=== PATIENT | male | born 1990 | race Caucasian/White ===

== ENCOUNTER 2020-03-22 09:48 | Day surgery (SDC) | payer OTHER ==
[~2020-03-22] VITALS: Ht 170.2 cm; Wt 83.9 kg
[~2020-03-22 09:48] MED LIST: HYDR-643 PO; NS 1,000 ML IV ONE
--- OUTSIDE RECORDS SUMMARY | 2020-03-22 09:54 | CCD ---
Author [facility] Organization [facility] Address Unknown Phone Unavailable Care Team Providers Care Event Decorator Name Role Phone Milly Canas MD Unavailable Unavailable Milly Canas MD Unavailable Unavailable Milly Canas MD Unavailable Unavailable Milly Canas MD Unavailable Unavailable Milly Canas MD Unavailable Unavailable Milly Canas MD Unavailable Unavailable Milly Canas MD Unavailable Unavailable Milly Canas MD Unavailable Unavailable Milly Canas MD Unavailable Unavailable Milly Canas MD Unavailable Unavailable Milly Canas MD Unavailable Unavailable Milly Canas MD Unavailable Unavailable Milly Canas MD Unavailable Unavailable Milly Canas MD Unavailable Unavailable Milly Canas MD Unavailable Unavailable Milly Canas MD Unavailable Unavailable Milly Canas MD Unavailable Unavailable Milly Canas MD Unavailable Unavailable Milly Canas MD Unavailable Unavailable Milly Canas MD Unavailable Unavailable Milly Canas MD Unavailable Unavailable Milly Canas MD Unavailable Unavailable Milly Canas MD Unavailable Unavailable Milly Canas MD Unavailable Unavailable Floresita, S Alfredo MD Unavailable Unavailable Floresita, S Alfredo MD Unavailable Unavailable Floresita, S Alfredo MD Unavailable Unavailable Floresita, S Alfredo MD Unavailable Unavailable Floresita, S Alfredo MD Unavailable Unavailable Floresita, S Alfredo MD Unavailable Unavailable Floresita, S Alfredo MD Unavailable Unavailable Floresita, S Alfredo MD Unavailable Unavailable Floresita, S Alfredo MD Unavailable Unavailable Floresita, S Alfredo MD Unavailable Unavailable Floresita, S Alfredo MD Unavailable Unavailable Floresita, S Alfredo MD Unavailable Unavailable Floresita, S Alfredo MD Unavailable Unavailable Floresita, S Alfredo MD Unavailable Unavailable Floresita, S Alfredo MD Unavailable Unavailable Floresita, S Alfredo MD Unavailable Unavailable Floresita, S Alfredo MD Unavailable Unavailable Floresita, S Alfredo MD Unavailable Unavailable Floresita, S Alfredo MD Unavailable Unavailable Floresita, S Alfredo MD Unavailable Unavailable Floresita, S Alfredo MD Unavailable Unavailable Floresita, S Alfredo MD Unavailable Unavailable Floresita, S Alfredo MD Unavailable Unavailable Floresita, S Alfredo MD Unavailable Unavailable Floresita, S Alfredo MD Unavailable Unavailable Viviana PAC, Jake Unavailable Unavailable Jupiter PAC, Jake Unavailable Unavailable Jupiter PAC, Jake Unavailable Unavailable Viviana PAC, Jake Unavailable Unavailable Jupiter PAC, Jake Unavailable Unavailable Jupiter PAC, Jake Unavailable Unavailable Jupiter PAC, Jake Unavailable Unavailable Jupiter PAC, Jake Unavailable Unavailable LANG JOYCE NPP Unavailable Unavailable Nain Wagner MD Unavailable Unavailable Nain Wagner MD Unavailable Unavailable Nain Wagner MD Unavailable Unavailable Nain Wagner MD Unavailable Unavailable Nain Wagner MD Unavailable Unavailable Nain Wagner MD Unavailable Unavailable Nain Wagner MD Unavailable Unavailable Nain Wagner MD Unavailable Unavailable Nain Wagner MD Unavailable Unavailable Nain Wagner MD Unavailable Unavailable Nain Wagner MD Unavailable Unavailable Nain Wagner MD Unavailable Unavailable Nain Wagner MD Unavailable Unavailable TURRIN, JUAN R Unavailable Unavailable TURRIN, JUAN R Unavailable Unavailable TURRIN, JUAN R Unavailable Unavailable TURRIN, JUAN R Unavailable Unavailable Re-disclosure Warning The records that you are about to access may contain information from federally-assisted alcohol or drug abuse programs. If such information is present, then the following federally mandated warning applies: This information has been disclosed to you from records protected by federal confidentiality rules (42 CFR part 2). The federal rules prohibit you from making any further disclosure of this information unless further disclosure is expressly permitted by the written consent of the person to whom it pertains or as otherwise permitted by 42 CFR part 2. A general authorization for the release of medical or other information is NOT sufficient for this purpose. The Federal rules restrict any use of the information to criminally investigate or prosecute any alcohol or drug abuse patient.The records that you are about to access may contain highly sensitive health information, the redisclosure of which is protected by Article 27-F of the [place] Public Health law. If you continue you may have access to information: Regarding HIV / AIDS; Provided by facilities licensed or operated by the [facility] Office of Mental Health; or Provided by the [facility] Office for People With Developmental Disabilities. If such information is present, then the following [facility] mandated warning applies: This information has been disclosed to you from confidential records which are protected by state law. State law prohibits you from making any further disclosure of this information without the specific written consent of the person to whom it pertains, or as otherwise permitted by law. Any unauthorized further disclosure in violation of state law may result in a fine or fdc sentence or both. A general authorization for the release of medical or other information is NOT sufficient authorization for further disc losure. Allergies and Adverse Reactions Type Description Substance Reaction Status Data Source(s ) No Known Allergies No Known Allergies [facility] Encounters Encounter Providers Location Date Indications Data Source(s ) Preadmit Attender: JOYCE BARRY 02/01/2020 08 :00:00 PM EST INSOMNIA,SNORING,EDS,RESTLESSNESS [facility] INSOMNIA,SNORING,EDS,RESTLESSNESS Outpatient Attender: Alfredo Canas MD Main Office 01/20/2020 12:45:00 PM EST [facility] ([facility]) Outpatient Attender: Jake COTE 12/19 07:15:00 AM EST - 01/07/2020 08:15:00 AM EST [facility] Patient discharged. Emergency Attender: JUAN R MAGUIRE 2019 04:10:00 PM EST - 12/27/2019 06:55:00 PM EST [facility] Patient discharged. Emergency Attender: Catie Wagner MDAdmitter: Faith Wagner MD OP-EMERGENCY DEPARTMENT 02/20/2019 08:11:00 AM EST - 02/20/2019 09:09:00 AM [facility] Patient discharged. Medications Medication Brand Name Start Date Product Form Dose Route Admi nistrative Instructions Pharmacy Instructions Status Indications Reaction Description Data Source(s) Suprep Bowel Prep Kit Suprep Bowel Prep Kit 01/20/2020 12:00:00 AM EST active [facility] ([facility]) Insurance Providers Payer name Policy type / Coverage type Policy ID Covered alliance party ID Covered alliance party's relationship to brito Policy Brito Plan Information [employer] [id number] SP [id number] ACTIVE DUTY [id number] SP [id number] [employer] - O/P [id number] 18 [id number] N REGIONAL CLAIMS KRISTIE-O/P [id number] 18 [id number] ACTIVE DUTY [id number] SELF [id number] ASSIGNED MEDICARE (81) [id number] [employer] [id number] P [id number] MEDICARE A [id number] P [id number] 1A [employer] [place] [id number] SELF [id number] MEDICARE IP / OP [id number] SELF [id number] [facility] INS PLAN [id number] SELF [id number] Problems, Conditions, and Diagnoses Code Display Name Description Problem Type Effective Dates Data Source(s) 05061826 Diarrhea Diarrhea Problem 01/20/2020 12:00:00 AM ES T [facility] ([facility]) [id number] Strain of muscle, fascia and tendon of the posterior muscle group at thigh level, left thigh, initial encounter Strain of muscle, fascia and tendon of the posterior muscle group at thigh level, left thigh, initial encounter Diagnosis 01/07/2020 07:15:00 AM [facility] [id number] Pain in right hip Pain in right hip Diagnosis 01/07/2020 07:15:00 AM [facility] [id number] Other specified places as the place of o ccurrence of the external cause Other specified places as the place of occurrence of the external cause Diagnosis 12/27/2019 04:10:00 PM [facility] [id number] Overexertion from strenuous movement or load, initial encounter Overexertion from strenuous movement or load, initial encounter Diagnosis 12/27/2019 04:10:00 PM [facility] [id number] Other specified enthesopathies of right lower limb, excluding foot Other specified enthesopathies of right lower limb, excluding foot Diagnosis 12/27/2019 04:10:00 PM [facility] [id number] Unspecified injury of right hip, initial encounter Unspecified injury of right hip, initial encounter Diagnosis 12/27/2019 04:10:00 PM [facility] Z48.02 Encounter for removal of sutures ENCOUNTER FOR R EMOVAL OF SUTURES Diagnosis 02/25/2019 07:40:00 PM [facility] Results ID Date Data Source [id number] 02/23/2020 11:33:00 AM [facility] Name Value Range Interpretation Code Description Data Rufina rce(s) Supporting Document(s) SARS coronavirus 2 RNA Not Detected [facility] This lab was ordered by [facility] Laboratory and reported by [facility]. ID Date Data Source [id number] 01/10/2020 11:38:00 AM [facility] [address] [place] [address] PHONE: [phone] FAX: [phone] Name .................. : NAHID Munoz Acct Number.................. : [id number] ROOM. ................. : Number ................... : [id number] Stay type ............. : O/P Discharge Date......... ... : 01/07/20 Admit Date ....... .. : 01/07/20 Admit Phys .................... : VIVIANA STOUT Date of ....... : 1990 Family Phys ................... : UNKNOWN CO Phone .................. : [phone] Age ................................ : 29 Film# .................. .:[id number] Sex ................................. : M Unsigned transcriptions are preliminary reports and do not represent a medical or legal document MRI LOWER EXT ANY JT W/O CONT [id number] COMPLETE:01/07/20 08:49 ELODIA 87587 (REASON FOR PROCESS: PAIN MRI OF THE RIGHT HIP WITHOUT CONTRAST: FINDINGS: Edematous changes are noted in the posterior aspect of the right inferior pubic ramus likely reactive edema following avulsion of the tendons of the semimembranosus and semitendinosus. No other osseous signal abnormality is seen. There is no other suggestion of musculotendinous disruption. Soft tissue mass is not identified. A small joint effusion is seen that is within normal limits. There is no abnormal bursal fluid collection. There is no labral tear. IMPRESSION: Avulsion injury of semimembranosus and semitendinosus tendons from the right inferior pubic ramus. Edematous changes in the right inferior pubic ramus posteriorly noted that is attributed to tendinous disruption. Otherwise, unremarkable examination. Electronically Reviewed and Signed By Arelis Farrell MD , 01/10/20 11:38, KGLolly Transcribe Initials: POLO , Transcribe Date: 01/08/20 01:46, Dictation Date: Copy for: VIVIANA RUCKER via fax Copy for: [address] [place] [address] REC Page 1 of 1 Name Value Range Interpretation Code Description Data Rufina rce(s) Supporting Document(s) ID Date Data Source [id number] 12/28/2019 08:59:00 [place] [address] PHONE: [phone] FAX: [phone] Name .................. : NAHID Munoz Acct Number.................. : [id number] ROOM. ................. : [facility] MR Number ................... : [id number] Stay type ............. : E/R Discharge Date......... ... : 12/27/19 Admit Date ....... .. : 12/27/19 Admit Phys .................... : TING MARCOS Date of ....... : 1990 Family Phys ................... : UNKNOWN CO Phone .................. : [phone] Age ................................ : 29 Film# .................. .:[id number] Sex ................................. : M Unsigned transcriptions are preliminary reports and do not represent a medical or legal document HIP UNILAT W PELV 2 TO 3V RT [id number] COMPLETE:12/27/19 19:20 [facility] [address] Reason(s): Hip Pain RIGHT HIP X-RAY WITH PELVIS: TECHNIQUE: Frontal view of the pelvis, frog leg view of the right hip and frontal view of the right hip were performed. FINDINGS: Acute fracture, subluxation or focal osseous lesion is not seen. Osteoarthritic changes are not identified. IMPRESSION: No acute pathology. If symptoms persist, consider correlation with MRI. Electronically Reviewed and Signed By Arelis Farrell MD , 12/28/19 08:59, KGG Transcribe Initials: POLO , Transcribe Date: 12/27/19 22:42, Dictation Date: Copy for: EMERGENCY DEPT via modem Copy for: 710 MED REC DISCHARGED Page 1 of 1 Name Value Range Interpretation Code Description Data Rufina rce(s) Supporting Document(s) ID Date Data Source [id number] 12/27/2019 04:10:00 PM EST [facility] 1 OrderSheet [facility] Emergency Department [address] [place] [address] Phone #: ext- [phone] 12/27/2019 15:53 Patient: MANFRED WHITFIELD Sex: M : 1990 Age: 29yWEIGHT:79.3 kg (S) HEIGHT:68 inches (S) BMI:26.6ALLERGIES: No Known Drug AllergyCHIEF COMPLAINT: Hip Injury, RtDIAGNOSIS: TendinitisLAB ORDERSOrder Description Priority Entered Acknowledged InitialedDIAGNOSTIC STUDY ORDERSOrder Description Priority Entered Acknowledged InitialedHip Right with STAT 16:32 12/27/2019 16:33 Isaiah Alonso 2-3 Views Juan R Maguire RN(Oxygen?(No)) Juliette; Reason for Study: Hip Pain, Pelvic PainMEDICATION/IV/DRIP/FLUID ORDERSOrder Description Priority Entered Acknowledged InitialedToradol IM 30 mg 16:31 12/27/2019 16:42 Blanca Alonso Riccardo RN M.D.;Morphine IM 4 mg 16:31 12/27/2019 16:43 Blanca Alonso(HIGH ALERT Juan R Maguire RNMEDICATION) Juliette;GENERAL ORDERSOrder Description Priority Entered Acknowledged Initialed[Electronically signed by Blanca Alonso RN (18:57 12/27/2019)][Electronically signed by Juan R Maguire M.D. (19:48 12/27/2019)][Electronically locked by Blanca Alonso RN (18:57 12/27/2019)] Name Value Range Interpretation Code Description Data Rufina rce(s) Supporting Document(s) ID Date Data Source [id number] 12/27/2019 04:10:00 PM [facility] 1 Medication Reconciliation Report [facility] Emergency Department [address] [place] [address] Phone #: ext- [phone] 12/27/2019 15:53 Patient: MANFRED WHITFIELD Sex: M : 1990 Age: 29yWeight: 79.3 kgHeight/Length: 68 in.BMI: 26.6ALLERGIES: No Known Drug AllergyThe patient's Home Medications are listed below:CONTINUE TAKING THE FOLLOWING MEDICATIONS: hydrOXYzine HCl Oral Lunesta OralThe source(s) of the original Home Medication information:patientThe following Medications were given to the patient in the Emergency Department:Toradol [IM] IM 30 mg, administered: 12/27/2019 4:42:00 PMMorphine [IM] IM 4 mg, administered: 12/27/2019 4:43:00 PMThe following Medications were prescribed to the patient:None. Name Value Range Interpretation Code Description Data Rufina rce(s) Supporting Document(s) ID Date Data Source [id number] 12/27/2019 04:10:00 PM [facility] 1 Medication Administration Record [facility] Emergency Department [address] [place] [address] Phone #: ext- [phone] 12/27/2019 15:53 Patient: MANFRED WHITFIELD Sex: M : 1990 Age: 29yWeight: 79.3 kgHeight/Length: 68 inBMI: 26.6ALLERGIES: No Known Drug Allergy Date/Time Medication Administered Medication OrderedGiven TORADOL [IM] (KETOROLAC Toradol IM 30 mg16:42 12/27/2019 TROMETHAMINE)Blanca Alonso, CONG Dose: 30 mg IMGiven MORPHINE [IM] Morphine IM 4 mg (HIGH ALERT16:43 12/27/2019 Dose: 4 mg IM MEDICATION)Blanca Alonso RN Name Value Range Interpretation Code Description Data Rufina rce(s) Supporting Document(s) ID Date Data Source [id number] 12/27/2019 04:10:00 PM EST [facility] 1 General Instructions [facility] Emergency Department [address] [place] [address] Phone #: ext- [phone] 12/27/2019 15:53 Patient: MANFRED WHITFIELD Sex: M : 1990 Age: 29yAcute traumatic tendonitis in the right hip (right hamstring at hip/pelvis area).Rule out Torn Hamstring, right side.INSTRUCTIONSApply ice for 30 minutes four times a day for two days followed by moist heat 30 minutes four times a dayfor five days until released. Don't apply ice directly to skin, don't use while asleep and don't use high settingon heating pad. Use crutches until released. You may walk and bear weight as tolerated. Return towork when released by doctor.(PLEASE FOLLOW UP WITH ORTHOPEDICS ON BASE TOMORROW FOR MRI TO RULE OUT RIGHTHAMSTRING TEAR).Warnings: GENERAL WARNINGS: Return or contact your physician immediately if your conditionworsens or changes unexpectedly, if not improving as expected, or if other problems arise. Specificallyreturn if pain, vomiting, bleeding, breathing difficulty or fever greater than 102 degrees F and not controlledby acetaminophen or ibuprofen worsens.Your Current Medications: Your current home medications have been reviewed.CONTINUE TAKING THE FOLLOWING MEDICATIONS:hydrOXYzine HCl Oral.Lunesta Oral.Follow-up:Return to the emergency department as needed. Follow up with an orthopedic surgeon in two days evenif well. Call for an appointment. Reason for referral: evaluation, treatment and MRI to rule out hamstringtear, injury. Summary of care provided to patient via paper.Understanding of the discharge instructions verbalized by patient. Expected course of injury, dischargeinstructions, activity level, diet, follow- up appointment and risks and benefits of treatment reviewed withpatient and understanding verbalized. Agrees to plan of care. ADDITIONAL INFORMATIONTendonitisA tendon is the thick fibrous cord that joins muscle to bone and allows joints to move. When a tendonbecomes inflamed, it is called tendonitis. This can occur from overuse, injury, or infection. This 2 General Instructions [facility] Emergency Department [address] [place] [address] Phone #: ext- [phone] 12/27/2019 15:53 ------ Patient: MANFRED WHITFIELD Sex: M : 1990 Age: 29yusually involves the shoulders, forearm, wrist, hands and feet. Symptoms include pain, swelling andtenderness to the touch. Moving the joint increases the pain.It takes 4 to 6 weeks or more for tendonitis to heal. It is treated by preventing motion of the tendon,occasionally with a splint or brace, and the use of anti-inflammatory medicine.Home care Some people find relief with ice packs. These can be crushed or cubed ice in a plastic bag or a bag of frozen vegetables wrapped in a thin towel. Other people get better relief with heat. This can include a hot shower, hot bath, or a moist towel warmed in a microwave. Try each and use the method that feels best, for 15 to 20 minutes several times a day. Rest the inflamed joint and protect it from movement. You may use vgtg-quv-kbaokzr ibuprofen or naproxen to treat pain and inflammation, unless another medicine was prescribed. If you can't take these medicines, acetaminophen may help with the pain, but does not treat inflammation. If you have chronic liver or kidney disease or ever had a stomach ulcer or gastrointestinal bleeding, talk with your doctor before using these medicines. As your symptoms improve, begin gradual motion at the involved joint.Follow-up careFollow up with your healthcare provider if you are not improving after 5 to 7 days of treatment.When to seek medical adviceCall your healthcare provider right away if any of these occur: Redness over the painful area Increasing pain or swelling at the joint Fever lasting 24 to 48 hours or chills, or as advised by your healthcare provider [phone] The [employer]. [address] [place] [address]. All rights reserved. This information is not intended as asubstitute for professional medical care. Always follow your healthcare professional's instructions.Crutch WalkingCrutch adjustment 3 General Instructions [facility] Emergency Department [address] [place] [address] Phone #: ext- [phone] 12/27/2019 15:53 Patient: MANFRED WHITFIELD Sex: M : 1990 Age: 29y Make sure the crutches you use are adjusted to fit you. When you stand,there should be room to fit 2 to 3 fingers between the top of the crutch and your armpit. Your elbowshould be slightly bent when holding the hand instructor programmable controllers. When your arms hang down, the crutch handleshould be at the top of your hip.Crutch walkingPlace the crutches forward about 1 foot in front of you. The crutches should be a little farther apartthan your body. Lean your weight forward as you push down on the hand instructor programmable controllers. Make sure yourweight is on your hands and your strong leg, not your armpits. Let your body swing forward, landingon the strong leg. Move the crutches forward again. The crutch and your injured leg should movetogether.Going up steps with no handrails(Up with the good leg) With both crutches (under each armpit) on the same step as your feet, push down on the hand instructor programmable controllers. 4 General Instructions [facility] Emergency Department [address] [place] [address] Phone #: ext- [phone] 12/27/2019 15:53 Patient: MANFRED WHITFIELD Sex: M : 1990 Age: 29y Balancing with very light pressure on the weak leg, let your hands support your weight. Raise your strong leg onto the next higher step. Transfer all your weight to your strong leg (still bent). Move the crutches up to the next step, next to your strong leg. Keep your weight evenly balanced on the two crutches and your strong leg. Straighten your strong knee as you raise your weak leg up to the next step.Going down steps with no handrails(Down with the bad leg) With both crutches (under each armpit) on the same step as your feet, push down on the hand instructor programmable controllers. Keep your weight evenly balanced on the two crutches and your strong leg. Bend your strong knee as you lower your weak leg down to the next step. Let your strong leg support you (still bent) as you move the crutches down next to the weak leg. Transfer your weight to your hands. Balance with very light pressure on your weak leg as you lower your strong leg next to your weak legGoing up steps with handrails(Up with the good leg) Face the stairs, holding the handrail with one hand. Place both crutches under your armpit on the opposite side. Push down on the hand instructor programmable controllers. Balancing with very light pressure on the weak leg, let your hands support your weight. Raise your strong leg onto the next higher step. Transfer all your weight to your strong leg (still bent) as you move the crutches up (while holding on to the handrail) to the next step next to the strong leg. Keep your weight evenly balanced on the handrail, the crutches (still under the same armpit opposite the handrail), and your strong leg. Straighten your strong knee as you raise the weak leg up to the next step.Going down steps with handrails(Down with the bad leg) Face the stairs, holding the handrail with one hand. Place both crutches under your armpit on 5 General Instructions [facility] Emergency Department [address] [place] [address] Phone #: ext- [phone] 12/27/2019 15:53 Patient: MANFRED WHITFIELD Sex: M : 1990 Age: 29y the opposite side. Push down on the hand instructor programmable controllers. Balance your weight evenly on the crutches, handrail, and your strong leg. Then bend your strong knee as you lower the weak leg down to the next step. Let the handrail and your strong leg support you (still bent) as you move the crutches down alongside the weak leg. While holding on to the handrail and crutches (under the same armpit on the other side), transfer your weight to your hands, balancing with very light pressure on the weak leg as you lower your strong leg alongside your weak legTip: If you are worried about falling or you feel unsteady, try sitting when going up or down stairsinsselect medical [facility]. Sit on the bottom step and keep your injured leg out in front of you. Hold your crutches flatagainst the stairs. Then slide up to the next step on your bottom. Use your free hand and good leg forsupport. Face the same way when going down stairs. 1705-3235 [employer]. [address] [place] [address], [place] [address]. All rights reserved. This information is not intended as asubstitute for professional medical care. Always follow your healthcare professional's instructions. You have been given the following additional information: Tendonitis Crutch Walking You may walk and bear weight as tolerated. Return to work when released by doctor.(Electronically signed by Juan R Maguire M.D. 12/27/2019 19:48) Name Value Range Interpretation Code Description Data Rufina rce(s) Supporting Document(s) ID Date Data Source [id number] 12/27/2019 04:10:00 PM EST [facility] 1 Clinical Report - Nurses [facility] Emergency Department [address] [place] [address] Phone #: ext- [phone] 12/27/2019 15:53 Patient: MANFRED WHITFIELD Sex: M : 1990 Age: 29yTRIAGEArrived by private vehicle. Historian: patient. Unaccompanied.Triage time: 16:03 12/27/2019. Acuity: LEVEL 4.Chief Complaint: RIGHT LOWER EXTREMITY PAIN.Alert. No acute distress.No injury occurred. ( Pt reports right hip pain x2 weeks. 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 Sepsis Screen negative. No suspected or confirmed signs ofinfection present. --16:06 12/27/19 Андрей Patel5:58 12/27/19. BP: 144/76. MAP: 98. HR: 78. RR: 16. O2 saturation: 97% on room air. Temp: 99.2 F.Pain level now: 07/27. --16:06 12/27/19 Rodrick Patel.Weight: 79.3 kg stated. Height/Length: 68 inches Per Patient. BMI: 26.6. --15:58 12/27/19 Rodrick Patel.MedicationshydrOXYzine HCl Oral. --16:01 12/27/19 Rodrick Patel Lunesta Oral. --16:01 12/27/19 Rodrick Patel.AllergiesNo Known Drug Allergy. --16:01 12/27/19 Rodrick Patel.PROBLEMS:Anxiety Reaction. --16:02 12/27/19 Rodrick Patel.Medication/allergy information source: the patient. --16:06 12/27/19 Rodrick López.ADDITIONAL SURGERIES:Lasik.Left shoulder sx. --16:02 12/27/19 Rodrick Patel.HistoryPAST MEDICAL HX: Immunizations: up-to-date.SOCIAL HX: Never smoker. Occasional alcohol use. No drug use. He was offered HIV testing butdeclined. Patient education was provided. He was offered hepatitis C testing but declined. Patient 2 Clinical Report - Nurses [facility] Emergency Department [address] [place] [address] Phone #: ext- [phone] 12/27/2019 15:53 Patient: MANFRED WHITFIELD Sex: M : 1990 Age: 29y education was provided. He has not traveled outside the [place] Infectious disease exposure: No infectious disease exposure. The patient was not exposed to Coronavirus. Patient is not a known carrier of tuberculosis, hepatitis, HIV, MRSA or VRE. Patient is not a known carrier of CRE. SELF HARM ASSESSMENT: Self harm assessment was performed. The patient answered "no" to the question(s) "Do you have thoughts of harming or killing yourself?", "Do you have a plan for harming or killing yourself?" and "Have you recently had thoughts about harming or killing others?". ABUSE ASSESSMENT: Abuse assessment. The patient had positive responses to the question(s) "Do you feel safe in your home?". No report of abuse. NUTRITIONAL RISK ASSESSMENT: The nutritional risk assessment revealed no deficiencies. FUNCTIONAL ASSESSMENT: Functional assessment: no impairments noted. LEARNING NEEDS ASSESSMENT: The learning needs assessment revealed no barriers. FALL RISK ASSESSMENT: Fall risk assessment completed. Risk factors identified include severe pain and patient impairment of mobility; pt using own crutches. SKIN INTEGRITY ASSESSMENT: Skin integrity risk assessment completed. No skin integrity risk identified. --16:06 12/27/19 Rodrick Patel.PHYSICAL ASSESSMENTAmbulatory to room.GENERAL / NEURO / PSYCH: Oriented X 4. Alert. Appears in no acute distress.EXTREMITIES: Limited ROM present. Extremity pulses are within normal limits. Neuro-vascular statusintact to the extremity. No lower extremity edema. Right hip: tenderness. Limited ROM secondary topain.SKIN: Skin intact. Skin is warm and dry. --16:43 12/27/19 Blanca Alonso RN.NURSING PROGRESS NOTES16:42 12/27/2019 Toradol (Ketorolac Tromethami ne) IM 30 mg given. Given in the right gluteus karely.Allergies verified and confirmed 5 rights. Information reviewed with patient including reason for taking thismedication. Verbalizes understanding. --16:42 12/27/19 Blanca Alonso RN 16:43 12/27/2019 Morphine IM 4 mg given. Given in the right deltoid. Allergies verified and confirmed 5 rights. Information reviewed with patient including reason for taking this medication and sedative warning. Verbalizes understanding. --16:43 12/27/19 Blanca Alonso, CONG Patient gowned. Reassurance given. Two patient identifiers checked. Bed placed in lowest position. Brakes of bed on. Patient ready for evaluation. --16:43 12/27/19 Blanca Alonso, CONG 3 Clinical Report - Nurses [facility] Emergency Department [address] [place] [address] Phone #: ext- [phone] 12/27/2019 15:53 [id number] Sex[facility] M : 1990 Age: 29y 16:59 12/27/19. BP: 141/76. MAP: 97. HR: 72. RR: 18. O2 saturation: 99%. --16:59 12/27/19 [employer] Tech1 16:55 12/27/19. Patient transported to radiology by stretcher with dairy technologist. --17:14 12/27/19 Blanca Alonso RN 17:05 12/27/19. Patient returned from radiology by stretcher with dairy technologist. --17:14 12/27/19 Blanca Alonso RN ( pt states shot helped alittle while he's lying in bed, but any movement pain shoots up). --17:22 12/27/19 Blanca Alonso RN 18:01 12/27/19. BP: 136/78. MAP: 97. HR: 74. RR: 16. O2 saturation: 99%. Temp: 98.1 F. --18:01 12/27/19 [employer], [employer] Tech1 ( pt walking in halls, feeling better). --18:32 12/27/19 Blanca Alonso RN.DISPOSITION / DISCHARGE 18:46 12/27/19. BP: 125/87. MAP: 99. HR: 79. RR: 16. O2 saturation: 99%. Temp: 98.1 F. Pain level now: 03/29. --18:46 12/27/19 [employer], [employer] Tech1 Departure time: 18:56 12/27/2019. --18:56 12/27/19 Blanca Alonso RN Condition at departure: improved. No learning barriers present. Discharge instructions provided and reviewed with the patient. Reviewed rest and ice instructions. Reviewed referral to an orthopedic surgeon. Work note given. Patient verbalized understanding. Long licona instructions provided in Brazilian. The patient was discharged by the physician. He was discharged home and accompanied by friend. He left ambulatory on crutches and via private vehicle. Driving (friend). --18:57 12/27/19 Blanca Alonso RN.Locked/Released at 12/27/2019 18:57 by Blanca Alonso RN Name Value Range Interpretation Code Description Data Rufina rce(s) Supporting Document(s) ID Date Data Source [id number] 12/27/2019 04:10:00 PM EST [facility] 1 Clinical Report - Physicians/[facility] Emergency Department [address] [place] [address] Phone #: ext- [phone] 12/27/2019 15:53 Patient: MANFRED WHITFIELD Sex: M : 1990 Age: 29y Time Seen: 16:21 12/27/2019; initial patient contact. Arrived- By private vehicle. Historian- patient. Disposition decision: 18:43 12/27/2019.HISTORY OF PRESENT ILLNESS Chief Complaint: RIGHT HIP INJURY. The injury occurred just prior to arrival. ( pt has been having mild rt posterior hip pain x 2 weeks, actually went hiking 2 days ago; was sitting at his desk and moved just right and felt a tear in rt posterior hip; severe pain since). O ccurred at work. The patient complains of severe pain. No blow to the head, neck pain, loss of consciousness or seizure. Not dazed.REVIEW OF SYSTEMSNo numbness, hearing loss, headache, loss of vision or chest pain. No depression, weakness, abdominalpain, nausea or difficulty breathing. No bladder dysfunction, laceration, fever or vomiting. Has notrecently been ill. All other systems reviewed and are negative.PAST HISTORYSee nurses notes. Tetanus immunization status is up-to-date. Problems: Anxiety Reaction. Additional Surgeries: Lasik. Left shoulder sx. Medications: Lunesta Oral. hydrOXYzine HCl Oral. Allergies: No Known Drug Allergy.SOCIAL HISTORYNever smoker. Occasional alcohol use. No drug use.ADDITIONAL NOTESThe nursing notes have been reviewed with agreement regarding the chief complaint, HPI, ROS, PMH andpatient medications and allergies.PHYSICAL EXAM 2 Clinical Report - Physicians/Mid Levels [facility] Emergency Department [address] [place] [address] Phone #: ext- [phone] 12/27/2019 15:53 Patient: MANFRED WHITFIELD Sex: M : 1990 Age: 29y Vital Signs: 12/27/2019 15:58 BP: 144/76. MAP: 98. HR: 78. RR: 16. O2 saturation: 97% on room air. Temp: 99.2 F. Pain level now: 07/27. Have been reviewed. Oxygen saturation normal. Appearance: Alert. Oriented X3. No acute distress. Head: Head non-tender. No swelling of head. Eyes: Pupils equal, round and reactive to light. EOM intact. ENT: No dental injury. Pharynx normal. Neck: Painless ROM. Non-tender. CVS: Heart sounds normal. Pulses normal. Respiratory: Painless inspiration. Breath sounds normal. Chest nontender. Abdomen: No visible injury. Soft and nontender. Bowel sounds normal. No organomegaly. No mass. Femoral pulses equal. Back: No tenderness. ROM normal. Skin: Skin intact. Skin warm and dry. Normal skin color. Normal skin turgor. Extremities: Normal inspection. Pelvis stable. Right hip: severe tenderness located in the posterior aspect of the hip. Limited ROM secondary to pain (diminished abduction, adduction, flexion, extension and external and internal rotation). Neurovascular intact distally. (pain is at site of insertion of hamstring to posterior hip area). No erythema, swelling or ecchymosis. No lower extremity edema. Neuro: Oriented X 3. No motor deficit. No sensory deficit. Reflexes normal.LABS, X-RAYS, AND EKGPelvis X-ray: No fracture. Views: AP. Technique: good. Interpretation time: 16:45 12/27/2019.Rt Hip X-ray: No fracture. Views: 2 view hip series and AP. Technique: good. The X-rays wereinterpreted by the radiologist. Interpretation time: 16:46 12/27/2019.PROGRESS AND PROCEDURESCourse of Care: 18:41 12/27/19. rt hip and pelvis x-rays are negative; pt has probable torn hamstring atpelvis or hip insertion; pt has crutches; [place] and [place]x; ptunderstands and agrees. Patient counseled in person regarding the patient's stable condition, diagnosis, need for follow-up and risks and benefits of procedures. Patient agrees with plan of care. Disposition: Condition: good and stable. Discharge decision based on the following: patient's condition is stable; patient's condition is improved; patient is ambulatory; patient is active; patient drinking fluids; patient eating; patient's pain is controlled; patient's exam is improved; no abnormal test results; improving condition on multiple repeat evaluations; social support is good; transportation is available; follow-up is available; clinical impression is consistent with outpatient treatment.CLINICAL IMPRESSION Acute traumatic tendonitis in the right hip (right hamstring at hip/pelvis area). Rule out Torn Hamstring, right side. 3 Clinical Report - Physicians/Mid Levels [facility] Emergency Department [address] [place] [address] Phone #: ext- [phone] 12/27/2019 15:53 Patient: MANFRED WHITFIELD Sex: M : 1990 Age: 29yINSTRUCTIONS Apply ice for 30 minutes four times a day for two days followed by moist heat 30 minutes four times a day for five days until released. Don't apply ice directly to skin, don't use while asleep and don't use high setting on heating pad. Use crutches until released. You may walk and bear weight as tolerated. Return to work when released by doctor. (PLEASE FOLLOW UP WITH ORTHOPEDICS [place]OM[place] FOR MRI TO RULE OUT RIGHT HAMSTRING TEAR). Long benito: GENERAL WARNINGS: Return or contact your physician immediately if your condition worsens or changes unexpectedly, if not improving as expected, or if other problems arise. Specifically return if pain, vomiting, bleeding, breathing difficulty or fever greater than 102 degrees F and not controlled by acetaminophen or ibuprofen worsens. Your Current Medications: Your current home medications have been reviewed. CONTINUE TAKING THE FOLLOWING MEDICATIONS: hydrOXYzine HCl Oral. Lunesta Oral. Follow-up: Return to the emergency department as needed. Follow up with an orthopedic surgeon in two days even if well. Call for an appointment. Reason for referral: evaluation, treatment and MRI to rule out hamstring tear, injury. Summary of care provided to patient via paper. Understanding of the discharge instructions verbalized by patient. Expected course of injury, discharge instructions, activity level, diet, follow- up appointment and risks and benefits of treatment reviewed with patient and understanding verbalized. Agrees to plan of care.(Electronically signed by Juan R Maguire M.D. 12/27/2019 19:48) Name Value Range Interpretation Code Description Data Rufina rce(s) Supporting Document(s) ID Date Data Source [id number] 12/22/2019 12:00:00 AM EST [facility] Name Value Range Interpretation Code Description Data [facility] rce(s) Supporting Document(s) SARS-CoV2 Rapid Antigen [facility] This lab was ordered by [facility] and reported by [facility]. ID Date Data Source [id number] 02/20/2019 08:11:00 AM EST [facility] PAGE: [address] [place] [address] , [place] [address] [facility] REC NUM: [id number] : 1990 Med Reconciliation Patient: MANFRED WHITFIELD Medication Reconciliation Report [facility]Visit[facility]: [id number] [place] [address] [phone], MRegistration Date/Time: 02/20/2019 08:11 Weight: 79.3 kgHeight/Length: 108 in.BMI: 10.5 ALLERGIES: The patient's Home Medications are listed below: Not obtained.The source(s) of the original Home Medication information: Not obtained.The following Medications were given to the patient in the Emergency Department:None.The following Medications were prescribed to the patient: None. Name Value Range Interpretation Code Description Data Rufina rce(s) Supporting Document(s) ID Date Data Source [id number] 02/20/2019 08:11:00 AM EST [facility] PAGE: [address] [place] [address] MANFRED Munoz [address] [place] [address] [facility] NUM: [id number] : 1990 Physician Discharge Report [facility] [address] [place] [address] Patient: MANFRED WHITFIELD : M : 1990 Age: 28yArrival: 02/20/2019 08:11 Departure: 02/20/2019 09:09 Disposition: Discharge Weight:79.3 kg. Height/Length:108 inches. BMI:10.5 Arrived- By private vehicle. Historian- patient. HISTORY OF PRESENT ILLNESSChief Complaint: SUTURE REMOVAL. Treated in emergency department six days ago. Previous emergency department treatment: laceration repair. No antibiotics given. The patient has no complaints since the procedure was performed. REVIEW OF SYSTEMSNo fever or numbness. All other systems reviewed and are negative. PAST HISTORYSee nurses notes. SOCIAL HISTORYSmoker - current status unknown. ADDITIONAL NOTESThe nursing notes have been reviewed. PHYSICAL EXAMVital Signs: 02/20/2019 08:18 BP: 126/82. MAP: 96. HR: 82. RR: 17. O2 saturation: 100%. Appearance: Alert. O riented X3. No acute distress. Skin: Healing wound. No infection. Single wound present- chin. Neuro: Oriented X 3. No motor deficit. PAGE: [address] [place] [address] , [place] [address] [facility] REC NUM: [id number] : 1990 PROGRESS AND PROCEDURESSuture Removal: The wound is located (chin). Examination of wound reveals normal healing, no tenderness and no infection. Distal neurovascular function and tendon function normal. - 5- sutures removed by me. Topical antibiotic applied. Disposition: Discharged. Condition: stable. CLINICAL IMPRESSIONSuture removal; INSTRUCTIONSFollow-up:Follow up with doctor in [place]. (Electronically signed by CATIE WAGNER MD 02/20/2019 08:42) Name Value Range Interpretation Code Description Data Rufina rce(s) Supporting Document(s) Procedure Vital Signs ID Date Data Source UNK Name Value Range Interpretation Code Description Data Source(s) Body mass index (BMI) [Ratio] 28.7 kg/m2 28.7 k g/m2 [facility] ([facility]) Heart rate 58 /min 58 /min [facility] ([facility]) Diastolic blood pressure 80 mm[Hg] 80 mm[Hg] [facility] ([facility]) Systolic blood pressure 129 mm[Hg] 129 mm[Hg] M MALATHI ([facility]) Body weight 183.00 [lb_av] 183.00 [lb_av] VERNON León ([facility]) Body height 67 [in_i] 67 [in_i] MEDRON ([facility]) 5'7" Body temperature 97.5 [degF] 97.5 [degF] NEAL ([facility]) Body weight 83.009 kg 83.009 kg MEDRON ([facility])
--- OUTSIDE RECORDS SUMMARY | 2020-03-22 09:54 | CCD | Continuity of Care Document ---
Author Author Zeyad CHOE M.D Organization Unknown Address [address] [place] [id number] Phone [phone] Care Team Providers Care Qa Consultant Name Role Phone [facility]ovani Medeiros [facility] [phone] Problems Active Problems Provider Date Diarrhea Alfredo Choe M.D. Onset: 01/20/20 20 Social History Type Date Description Comments Sex Unknown ETOH Use Occasionally Tobacco Use Start: Unknown Patient has never smoked Allergies, Adverse Reactions, Alerts Description No Known Drug Allergies Medications Active Medications SIG Qnty Indications Ordering Provide r Date Suprep Bowel Prep Kit 17.5-3.13-1.6GM/177ML Solution use as directed 354ml Alfredo Choe M.D. 01/20/2020 Hydroxyzine HCL 25mg Tablets Unknown Gabapentin 100mg Capsules Unknown Ibuprofen 200mg Capsules Unknown Immunizations Description No Information Available Vital Signs Date Vital Result Comment 01/20/2020 2:01pm Height 67 inches 5'7" Weight 183.00 lb BP Systolic 129 mmHg BP Diastolic 80 mmHg Heart Rate 58 /min BMI (Body Mass Index) 28.7 kg/m2 Weight 83.009 kg Body Temperature 97.5 F Results Description No Information Available Procedures Description No Information Available Medical Devices Description No Information Available Encounters Type Date Location Provider Dx Diagnosis Office Visit 01/20/2020 1:45p Main Office Alfredo Choe M.D. K 58.0 Irritable bowel syndrome with diarrhea Assessments Date Code Description Provider 01/20/2020 K58.0 Irritable bowel syndrome Alfredo Choe M.D. Plan of Treatment Future Appointment(s):* 02/28/2020 8:30 am - Alfredo Choe M.D. at Main Office 01/20/2020 - Alfredo Choe M.D.* K58.0 Irritable bowel syndrome* Comments: * 29 yo wm who presents for a chronic h/o urgency/diarrhea/irregular bowel habits. Occasional rectal bleeding. No weight loss. Pt has had loose bms from 5374-1258. No c/o abdominal pain. Plan:1. Colonoscopy + ileoscopy + biopsies.2. Informed consent. Functional Status Description No Information Available Mental Status Description No Information Available Referrals Refer to Reason for Referral Status Appt Date Alfredo Choe M.D. Scheduled [address] [place] [phone]
[2020-03-22] MEDS ORDERED: LIDOCAINE 2% 100MG/5ML SDV (FOR ANES.) As Ordered ONE (11:00)
[2020-03-22] MEDS ORDERED: propofoL 200 MG/20 ML VIAL As Ordered ONE ×2 (11:00→11:10)
--- NOTE | 2020-03-22 11:27 | ROOR ---
Patient Name: Zeyad Reese Procedure Date: 03/22/2020 11:00 AM Date of : 1990 Age: 30 Room: [facility] Gender: Male Note Status: Finalized Procedure: Total Colonoscopy to Cecum + ileoscopy + Bx Indications: Clinically significant diarrhea of unexplained origin, Rectal bleeding Providers: Alfredo Canas MD Referring MD: MITZI CARTAGENA MD Requesting Provider: Medicines: Monitored Anesthesia Care Complications: No immediate complications. Procedure: Pre-Anesthesia Assessment: - The heart rate, respiratory rate, oxygen saturations, blood pressure, adequacy of pulmonary ventilation, and response to care were monitored throughout the procedure. The Colonoscope was introduced through the anus and advanced to the terminal ileum, with identification of the appendiceal orifice and IC valve. The colonoscopy was performed without difficulty. The patient tolerated the procedure well. The quality of the bowel preparation was excellent. Findings: The perianal and digital rectal examinations were normal. Non-bleeding internal hemorrhoids were found during retroflexion. The hemorrhoids were small and Grade I (internal hemorrhoids that do not prolapse). No other significant abnormalities were identified in a careful examination of the remainder of the colon. Biopsies for histology were taken with a cold forceps from the ascending colon, transverse colon and descending colon for evaluation of microscopic colitis. The exam was otherwise without abnormality on direct and retroflexion views. The terminal ileum appeared normal. Impression: - Non-bleeding internal hemorrhoids. - The examination was otherwise normal on direct and retroflexion views. - The examined portion of the ileum was normal. - Biopsies were taken with a cold forceps from the ascending colon, transverse colon and descending colon for evaluation of microscopic colitis. - The exam was otherwise normal to the cecum. Recommendation: - Patient has a contact number available for emergencies. The signs and symptoms of potential delayed complications were discussed with the patient. Return to normal activities tomorrow. Written discharge instructions were provided to the patient. - High fiber diet. - Discharge patient to home. - Continue present medications. - Await pathology results. - Telephone GI clinic for pathology results in 1 week. - Repeat colonoscopy at age 48 for screening purposes. - Return to referring physician. - The findings and recommendations were discussed with the patient. Procedure Code(s): --- Professional --- 36500, Colonoscopy, flexible; with biopsy, single or multiple Diagnosis Code(s): --- Professional --- K64.0, First degree hemorrhoids R19.7, Diarrhea, unspecified K62.5, Hemorrhage of anus and rectum CPT copyright 2019 [employer]. All rights reserved. The codes documented in this report are preliminary and upon life skills worker review may be revised to meet current compliance requirements. Alfredo Canas MD Alfredo Canas MD 03/22/2020 11:27:06 AM Electronically signed by Alfredo Canas MD Number of Addenda: 0 Note Initiated On: 03/22/2020 11:00 AM Estimated Blood Loss: Estimated blood loss: none.
[2020-03-22 11:40] VITALS: BP 118/64
== END 2020-03-22 11:53 | disposition home or self-care (01) ==
LOC: M OPP 09:48
PROVIDERS: ATTEND Internal Medicine Gastroenterology
DX: R19.7 Diarrhea, unspecified (principal); K62.5 Hemorrhage of anus and rectum; K58.9 Irritable bowel syndrome, unspecified; D12.6 Benign neoplasm of colon, unspecified; K64.0 First degree hemorrhoids; F41.9 Anxiety disorder, unspecified; Z79.899 Other long term (current) drug therapy

== ENCOUNTER 2020-09-13 10:53 | Emergency (ER) | payer OTHER ==
[~2020-09-13] VITALS: Ht 172.7 cm; Wt 84.6 kg
[~2020-09-13 10:53] MED LIST changes: -NS 1,000 ML IV ONE
[2020-09-13] MEDS ORDERED: MELO15TA28 PO (11:19)
[2020-09-13 12:46] LABS: BASO % 0.5 % (0.0-1.0); EOS # 0.1 10^3/uL (0.0-0.5); EOS % 2.3 % (0.0-3.0); HEMATOCRIT 44.6 % (42.0-52.0); HEMOGLOBIN 14.8 g/dl (13.5-17.5); LYMPH # 1.5 10^3/uL (1.5-5.0); LYMPH % 24.9 % (24.0-44.0); MEAN CORPUSCULAR HEMOGLOBIN 30.5 pg (27.0-33.0); MEAN CORPUSCULAR HGB CONC 33.2 g/dl (32.0-36.5); MEAN CORPUSCULAR VOLUME 91.8 fl (80.0-96.0); MONO # 0.4 10^3/uL (0.0-0.8); MONO % 6.6 % (2.0-8.0); NEUTROPHILS # 4.1 10^3/uL (1.5-8.5); NEUTROPHILS % 65.5 % (36.0-66.0); PLATELET COUNT, AUTOMATED 172 10^3/uL (150-450); RED BLOOD COUNT 4.86 10^6/uL (4.30-6.10); WHITE BLOOD COUNT 6.2 10^3/uL (4.0-10.0)
[2020-09-13 13:13] LABS: ALBUMIN 4.2 GM/DL (3.2-5.2); BILIRUBIN,DIRECT 0.2 MG/DL (0.0-0.2); BILIRUBIN,TOTAL 0.5 MG/DL (0.2-1.0); TOTAL PROTEIN 7.4 GM/DL (6.4-8.2)
[2020-09-13] MEDS: GASTROGRAFIN SOLUTION 30ML PO SCH ×2 (14:42→15:44)
[2020-09-13] MEDS ORDERED: ISOVUE-370 76% 100ML VIAL As Ordered ONE (16:06)
[2020-09-13 16:30] VITALS: BP 134/78
--- NOTE | 2020-09-13 16:40 | REP ---
INDICATION: bloody stools, LLQ pain. COMPARISON: None. TECHNIQUE: Oral Gastrografin mixture per our bowel contrast protocol and bolus 100 mL Isovue 07/20/2069 scanning through the abdomen and pelvis with both coronal and sagittal reconstructions provided. Bone windows are also reviewed. FINDINGS: CT abdomen: Lung bases are clear. The heart is not enlarged and there is no pericardial thickening or effusion. No hiatal hernia there is diffuse the lower in density than the spleen on this contrast study is could reflect some fatty infiltration there is no hepatomegaly, splenomegaly, biliary dilatation or ascites. The right hepatic lobe shows 2 or 3 very densely calcified granulomas laterally and superiorly. No cyst and no solid lesion. No splenic calcifications. Gallbladder shows no calcified stone or mass. Pancreas was unremarkable. The adrenal glands are normal. Kidneys show function without obstruction, stone, mass or cyst. There is no perinephric edema. Ureters show normal course to the bladder and are without dilatation or stone. The aorta is without aneurysm or dissection. I see no periaortic, retroperitoneal or mesenteric lymphadenopathy. There is no evidence of ascites. The abdominal portion of colon shows gas and stool throughout without abnormal distension. No colonic wall thickening to suggest colitis. No diverticulosis. Small bowel loops contrast filled in the mid to distal small bowel reaching the terminal ileum and cecum. Proximal loops of small bowel in the left upper quadrant show nonspecific wall thickening that may reflect some gastroenteritis. Lung window review of all CT slices in the abdomen pelvis shows no perforation or free air. The bone windows show minor disc space narrowing posteriorly at L4-5 and L5-S1 with a couple of mm of retrolisthesis at each of those levels. Spondylosis with anterior osteophytes at T11-12 noted. No compression deformity or acute bony finding in the spine or visible ribs. CT pelvis: Bone windows show sacrum, SI joints, pelvis and hips all unremarkable. Distal left colon and sigmoid are not well distended. The sigmoid is mostly collapsed in this region, there may be some slight wall thickening. No pericolonic inflammatory changes noted. Small bowel loops are contrast filled but without wall thickening in the pelvis. No mesenteric edema or adenopathy in the deep pelvis. No pathologic sized pelvic lymphadenopathy. Bladder without wall thickening, mass or stone. No ventral or inguinal hernia nor pathologic sized inguinal adenopathy. IMPRESSION: 1. Colon collapsed in its sigmoid segments and rectum, wall thickness difficult to [employer] store [employer] but it may be slightly edematous. However, I do not see significant pericolonic inflammatory change that would clearly define colitis. Correlate clinically. There is no ascites, pathologic sized adenopathy, pelvic mass or free fluid. 2. Upper abdominal solid organs unremarkable. The gallbladder and stomach unremarkable. 3. Proximal small bowel loops in the left upper quadrant do not show any of the oral contrast some questionable bowel wall thickening there is seen as a nonspecific finding but some gastroenteritis could not be excluded. There are no air-fluid levels or distended bowel loops. No ascites or free air. 4. Question some fatty infiltration of the liver but no hepatic mass, intrahepatic biliary dilatation, gallstones or other acute finding. <Electronically signed by Jake Oconnell > 09/13/20 1997
--- NOTE | 2020-09-14 08:58 | ED PDOC ---
Post-Departure Follow-Up ct abd/p faxed to [facility] for fu Eloy Pace MD Sep 14, 2020 08:58
== END 2020-09-13 17:26 | disposition home or self-care (01) ==
LOC: M ED 10:53
DX: R10.32 Left lower quadrant pain (principal); K92.1 Melena; K58.9 Irritable bowel syndrome, unspecified; M19.90 Unspecified osteoarthritis, unspecified site; Z79.899 Other long term (current) drug therapy
CPT/HCPCS: 36415; 74177; 80047; 80076; 81001; 83690; 85025; 99284; Q9963; Q9967

== ENCOUNTER → 2021-10-05 | Outpatient (CLI) | payer OTHER ==
[~2021-10-05] MED LIST changes: +ISOVUE-300 61% 5ML SYRINGE As Ordered ONE; +LIDOCAINE 1% MDV 20ML VIAL As Ordered ONE; +MELO15TA28 PO; +PROHANCE 279.3MG/ML 5ML VIAL As Ordered ONE
== END ==
LOC: M RADPRO 06:38
PROVIDERS: ATTEND Emergency Medicine
DX: S73.102A Unspecified sprain of left hip, initial encounter (principal); X58.XXXA Exposure to other specified factors, initial encounter; Y92.9 Unspecified place or not applicable
CPT/HCPCS: 27093; 73723; 77002; A9576; Q9967

== ENCOUNTER 2022-06-20 12:59 | Inpatient (IN) | payer OTHER ==
[~2022-06-20] VITALS: Ht 172.7 cm; Wt 86.2 kg
[~2022-06-20 12:59] MED LIST changes: -ISOVUE-300 61% 5ML SYRINGE As Ordered ONE; -LIDOCAINE 1% MDV 20ML VIAL As Ordered ONE; -PROHANCE 279.3MG/ML 5ML VIAL As Ordered ONE
[2022-06-20] MEDS ORDERED: HYDR-3363 PO (13:08)
[2022-06-20] MEDS ORDERED: DULO1CAP5 PO (13:08)
[2022-06-20] MEDS ORDERED: VANCOMYCIN HCL 1,750 MG in IV FLUID PLACE HOLDER 1 EA IV ONE (15:10)
[2022-06-20] MEDS ORDERED: NS 1,000 ML IV ONE (15:10)
[2022-06-20 15:46] LABS: BASO # 0.1 10^3/uL (0.0-0.2); BASO % 0.6 % (0.0-1.0); EOS # 0.4 10^3/uL (0.0-0.5); EOS % 4.3 % (0.0-3.0); HEMATOCRIT 45.9 % (42.0-52.0); HEMOGLOBIN 15.7 g/dl (13.5-17.5); LYMPH # 2.3 10^3/uL (1.5-5.0); LYMPH % 25.3 % (24.0-44.0); MEAN CORPUSCULAR HEMOGLOBIN 30.7 pg (27.0-33.0); MEAN CORPUSCULAR HGB CONC 34.2 g/dl (32.0-36.5); MEAN CORPUSCULAR VOLUME 89.6 fl (80.0-96.0); MONO # 0.7 10^3/uL (0.0-0.8); MONO % 7.9 % (2.0-8.0); NEUTROPHILS # 5.6 10^3/uL (1.5-8.5); NEUTROPHILS % 61.7 % (36.0-66.0); PLATELET COUNT, AUTOMATED 200 10^3/uL (150-450); RED BLOOD COUNT 5.12 10^6/uL (4.30-6.10); WHITE BLOOD COUNT 9.1 10^3/uL (4.0-10.0)
[2022-06-20] MEDS ORDERED: VANCOMYCIN HCL 1,000 MG, VIAL MATE ADAPTER 1 EACH in D5W 250 ML IV ONE (16:00)
[2022-06-20] MEDS ORDERED: KETOROLAC 30 MG/ML 1ML VIAL IV ONE (16:05)
[2022-06-20 16:10] LABS: ALBUMIN 4.5 G/DL (3.2-5.2); ALKALINE PHOSPHATASE 65 U/L (46-116); ALT/SGPT 25 U/L (7.0-40); AST/SGOT 20 U/L (<34); BILIRUBIN,DIRECT 0.1 MG/DL (<0.4); BILIRUBIN,TOTAL 0.4 MG/DL (0.3-1.2); BLOOD UREA NITROGEN 13 MG/DL (9-23); CALCIUM LEVEL 9.5 MG/DL (8.5-10.1); CARBON DIOXIDE LEVEL 30 MMOL/L (20-31); CHLORIDE LEVEL 104 MMOL/L (98-107); CREATININE FOR GFR 0.85 MG/DL (0.70-1.30); GLOMERULAR FILTRATION RATE > 60.0 (>60); GLUCOSE, FASTING 82 MG/DL (60-100); POTASSIUM SERUM 3.9 MMOL/L (3.5-5.1); SODIUM LEVEL 140 MMOL/L (136-145); TOTAL PROTEIN 7.8 G/DL (5.7-8.2)
[2022-06-20 16:14] LABS: ERYTHROCYTE SEDIMENTATION RATE 5 mm/hr (0-15)
[2022-06-20] MEDS ORDERED: VANCOMYCIN HCL 750 MG, VIAL MATE ADAPTER 1 EACH in D5W 250 ML IV ONE (17:00)
[2022-06-20] MEDS ORDERED: KETOROLAC 30 MG/ML 1ML VIAL IV PRN (19:10)
[2022-06-20] MEDS ORDERED: HOME MED LIST COMPLETE! XX SCH (19:50)
[2022-06-20 19:53] VITALS: BP 118/60
[2022-06-20] MEDS: DULoxetine 30MG CAPSULE (CYMBALTA) PO SCH (20:16)
[2022-06-20] MEDS ORDERED: PINK BISMUTH SUSP 524MG/30ML ORAL SYRINGE PO ONE (22:00)
[2022-06-20] MEDS: VANCOMYCIN HCL 1,000 MG, VIAL MATE ADAPTER 1 EACH in D5W 250 ML IV SCH (23:51)
[2022-06-21 05:24] VITALS: BP 107/66
[2022-06-21] MEDS: ACETAMINOPHEN 500 MG TAB PO PRN (05:44)
[2022-06-21 05:54] LABS: BASO % 0.6 % (0.0-1.0); EOS # 0.4 10^3/uL (0.0-0.5); EOS % 6.8 % (0.0-3.0); HEMOGLOBIN 13.8 g/dl (13.5-17.5); LYMPH # 2.1 10^3/uL (1.5-5.0); LYMPH % 32.6 % (24.0-44.0); MEAN CORPUSCULAR HEMOGLOBIN 30.3 pg (27.0-33.0); MEAN CORPUSCULAR HGB CONC 33.7 g/dl (32.0-36.5); MEAN CORPUSCULAR VOLUME 90.1 fl (80.0-96.0); MONO # 0.7 10^3/uL (0.0-0.8); MONO % 10.9 % (2.0-8.0); NEUTROPHILS # 3.1 10^3/uL (1.5-8.5); NEUTROPHILS % 48.8 % (36.0-66.0); PLATELET COUNT, AUTOMATED 152 10^3/uL (150-450); RED BLOOD COUNT 4.55 10^6/uL (4.30-6.10); WHITE BLOOD COUNT 6.3 10^3/uL (4.0-10.0)
[2022-06-21 06:26] LABS: BLOOD UREA NITROGEN 11 MG/DL (9-23); CALCIUM LEVEL 8.9 MG/DL (8.5-10.1); CARBON DIOXIDE LEVEL 29 MMOL/L (20-31); CHLORIDE LEVEL 109 MMOL/L (98-107); CREATININE FOR GFR 0.96 MG/DL (0.70-1.30); GLOMERULAR FILTRATION RATE > 60.0 (>60); GLUCOSE, FASTING 94 MG/DL (60-100); POTASSIUM SERUM 4.8 MMOL/L (3.5-5.1); SODIUM LEVEL 140 MMOL/L (136-145)
[2022-06-21] MEDS: VANCOMYCIN HCL 1,000 MG, VIAL MATE ADAPTER 1 EACH in D5W 250 ML IV SCH ×3 (08:00→23:43)
[2022-06-21] MEDS: DULoxetine 30MG CAPSULE (CYMBALTA) PO SCH ×2 (08:00→20:22)
[2022-06-21 14:00] VITALS: BP 134/68
[2022-06-21 20:50] VITALS: BP 119/78
[2022-06-22] MEDS: ACETAMINOPHEN 500 MG TAB PO PRN (00:59)
[2022-06-22 05:20] VITALS: BP 108/63
[2022-06-22 07:23] LABS: BASO # 0.1 10^3/uL (0.0-0.2); BASO % 0.9 % (0.0-1.0); EOS # 0.7 10^3/uL (0.0-0.5); EOS % 8.6 % (0.0-3.0); HEMATOCRIT 40.9 % (42.0-52.0); HEMOGLOBIN 13.9 g/dl (13.5-17.5); LYMPH # 2.5 10^3/uL (1.5-5.0); LYMPH % 32.6 % (24.0-44.0); MEAN CORPUSCULAR HEMOGLOBIN 30.3 pg (27.0-33.0); MEAN CORPUSCULAR VOLUME 89.3 fl (80.0-96.0); MONO # 0.8 10^3/uL (0.0-0.8); MONO % 10.3 % (2.0-8.0); NEUTROPHILS # 3.6 10^3/uL (1.5-8.5); NEUTROPHILS % 47.3 % (36.0-66.0); PLATELET COUNT, AUTOMATED 182 10^3/uL (150-450); RED BLOOD COUNT 4.58 10^6/uL (4.30-6.10); WHITE BLOOD COUNT 7.6 10^3/uL (4.0-10.0)
[2022-06-22 07:51] LABS: BLOOD UREA NITROGEN 11 MG/DL (9-23); CALCIUM LEVEL 8.7 MG/DL (8.5-10.1); CARBON DIOXIDE LEVEL 30 MMOL/L (20-31); CHLORIDE LEVEL 107 MMOL/L (98-107); GLOMERULAR FILTRATION RATE > 60.0 (>60); GLUCOSE, FASTING 91 MG/DL (60-100); POTASSIUM SERUM 3.8 MMOL/L (3.5-5.1); SODIUM LEVEL 141 MMOL/L (136-145)
[2022-06-22] MEDS ORDERED: CEPH500C PO (08:40)
[2022-06-22] MEDS: VANCOMYCIN HCL 1,000 MG, VIAL MATE ADAPTER 1 EACH in D5W 250 ML IV SCH (09:04)
[2022-06-22] MEDS: DULoxetine 30MG CAPSULE (CYMBALTA) PO SCH (09:04)
== END 2022-06-22 10:27 | disposition home or self-care (01) | DRG 603 ==
LOC: M ED 12:59 → M ED INP 18:53 → M MSPAV 19:45
PROVIDERS: ADMIT Family Medicine; ATTEND Family Medicine
DX: L03.021 Acute lymphangitis of right finger (principal); L03.121 Acute lymphangitis of right axilla; L03.111 Cellulitis of right axilla; L03.011 Cellulitis of right finger; F43.10 Post-traumatic stress disorder, unspecified

== ENCOUNTER → 2023-07-21 | Outpatient (CLI) | payer OTHER ==
[~2023-07-21] MED LIST changes: +CEPH500C PO; +DULO1CAP5 PO; +HYDR-3363 PO; +ISOVUE-300 61% 100ML VIAL As Ordered ONE; +LIDOCAINE 1% MDV 20ML VIAL As Ordered ONE; +PROHANCE 279.3MG/ML 5ML VIAL As Ordered ONE
== END ==
LOC: M RAD 04-28 06:11
PROVIDERS: ATTEND Physician Assistant
DX: M19.012 Primary osteoarthritis, left shoulder (principal); M25.512 Pain in left shoulder
CPT/HCPCS: 23350; 73223; 77002; A9576; Q9967